=== PATIENT | male | born 1980 | race Caucasian/White ===

== ENCOUNTER 2024-02-10 04:02 | Emergency (ER) | payer SELFPAY ==
[~2024-02-10] VITALS: Ht 182.9 cm; Wt 107.5 kg
[2024-02-10 04:03] VITALS: BP 125/81; PULSE 120; RESP 16; TEMP 98
--- NOTE | 2024-02-10 04:11 | NUR ---
REFUSAL OF MEDICAL TREATMENT FORM SIGNED BY PT, CO SIGNED BY GREG RODRIGUEZ .
== END 2024-02-10 04:50 ==
LOC: EDH 04:02
DX: Z53.21 Procedure and treatment not carried out due to patient leaving prior to being seen by health care provider (principal)